=== PATIENT | male | born 1955 | race Caucasian/White ===

== ENCOUNTER 2017-10-13 12:19 | Emergency (ER) | payer BC ==
[2017-10-13 12:24] VITALS: BP 147/92; PULSE 100; TEMP 98.8; BMI 29.2
--- NOTE | 2017-10-13 13:15 | PDOC ---
History of Present Illness - General Chief Complaint: Injury Stated Complaint: FALL Time Seen by Provider: 10/13/17 12:53 History Source: Patient, Family Exam Limitations: Language Barrier - History of Present Illness Initial Comments: 10/13/17 13:08 Patient is a 61M with history of NIDDM, HTN, migraines that result in dizzy spells here today with trauma after a fall. He has an abrasion and ecchymosis over right eye and swelling with tenderness in left thumb/hand. Patient states that he had a mechanical fall while walking down some stairs due to the stairs being uneven. The fall was not witnessed. Patient denies LOC, vomiting. He states that he was able to walk home after the incident. Denies any prodromal symptoms such as chest pain, shortness of breath and dizziness. Past History - Past Medical History Allergies/Adverse Reactions: Allergies Allergy/AdvReac Type Severity Reaction Status Date / Time No Known Allergies Allergy Verified 09/19/16 12:59 Home Medications: Ambulatory Orders Aspirin 81 mg PO DAILY 10/13/17 Atorvastatin Ca [Lipitor] 40 mg PO HS 10/13/17 Cephalexin Monohydrate [Keflex -] 500 mg PO BID #14 capsule 10/13/17 Cholecalciferol (Vitamin D3) [Vitamin D3] 1,000 unit PO DAILY 10/13/17 Linagliptin [Tradjenta] 5 mg PO DAILY 10/13/17 Metoprolol Tartrate 25 mg PO DAILY 10/13/17 Oxycodone HCl/Acetaminophen [Percocet 5-325 mg Tablet] 1 tab PO Q6H PRN #20 tablet MDD 4 10/13/17 Anemia: No Asthma: No Cancer: No Cardiac Disorders: No CVA: No COPD: No CHF: No Dementia: No Diabetes: Yes GI Disorders: No Disorders: No HTN: Yes Hypercholesterolemia: No Liver Disease: No Seizures: No Thyroid Disease: No - Suicide/Smoking/Psychosocial Hx Smoking History: Former smoker Have you smoked in the past 12 months: No Number of Cigarettes Smoked Daily: 20 If you are a former smoker, when did you quit?: 2 MO Information on smoking cessation initiated: No 'Breaking Loose' booklet given: 09/19/16 Hx Alcohol Use: Yes (SOCIAL) Drug/Substance Use Hx: No Review of Systems - Review of Systems Comments:: 10/13/17 13:17 GENERAL/CONSTITUTIONAL: No fever or chills. No weakness. HEAD, EYES, EARS, NOSE AND THROAT: No change in vision. No sore throat. CARDIOVASCULAR: No chest pain or shortness of breath RESPIRATORY: No cough, wheezing, or hemoptysis. GASTROINTESTINAL: No nausea, vomiting, diarrhea or constipation. GENITOURINARY: No dysuria, frequency, or change in urination. MUSCULOSKELETAL: Positive for headache and pain to left hand/thumb. SKIN: No rash NEUROLOGIC: Positive for headache. Denies vertigo, loss of consciousness, or change in strength/sensation. HEMATOLOGIC/LYMPHATIC: No anemia, easy bleeding, or history of blood clots. ALLERGIC/IMMUNOLOGIC: No hives or skin allergy. *Physical Exam - Vital Signs Last Vital Signs Temp Pulse Resp BP Pulse Ox 98.8 F 100 H 20 147/92 97 10/13/17 12:20 10/13/17 12:20 10/13/17 12:20 10/13/17 12:20 10/13/17 12:20 - Physical Exam Comments: 10/13/17 13:18 GENERAL: Awake, alert, and fully oriented, in no acute distress HEAD: 3x3cm ecchymosis over right eye, normocephalic EYES: PERRLA without pain, EOMI without pain, sclera anicteric, conjunctiva clear ENT: Auricles normal inspection, hearing grossly normal, nares patent, oropharynx clear without exudates. Moist mucosa NECK: Normal ROM, supple, no lymphadenopathy, JVD, or masses, no tenderness midline LUNGS: No distress, speaks full sentences, clear to auscultation bilaterally HEART: Regular rate and rhythm, normal S1 and S2, no murmurs, rubs or gallops, peripheral pulses normal and equal bilaterally. L Hand: Swelling over left thumb with linear laceration, 4cm. Neurovascularly intact distal to injury. Positive for snuffbox tenderness. NEUROLOGICAL: Cranial nerves II through XII grossly intact. Normal speech, normal gait, no focal sensorimotor deficits Procedures - Splinting Splint Location: Left: Forearm Pre-Proc Neuro Vasc Exam: normal Hand-Made Type: orthoglass Splint Type: Yes: Thumb Spica, Sugar Tong Post-Proc Neuro Vasc Exam: normal Mic Bandage: 4" Sling: Yes Complications: No - Laceration/Wound Repair Left Posterior Hand Wound Length: 2.6 to 5.0 cm Wound Explored: clean, no foreign body present Wound's Depth, Shape: superficial Irrigated w/ Saline: Yes Anesthesia: 1% Lidocaine Amount of Anesthetic (ccs): 3 Wound Repaired With: Sutures Suture Size/Type: 4:0 Number of Sutures: 4 ED Treatment Course - RADIOLOGY Radiology Studies Ordered: Category Date Time Status HEAD CT WITHOUT CONTRAST [CT] Stat CT Scan 10/13/17 13:06 Ordered WRIST W/HAND-LEFT* [RAD] Stat Radiology 10/13/17 13:06 Ordered Medical Decision Making - Medical Decision Making 10/13/17 13:20 61M with history of DM, HTN, and migraines here today with trauma after a fall. Vital signs normal and stable. HR 100 at triage, in the 80s on my exam. Will do head ct for head trauma. Will do tetanus and x-ray for left hand. Will splint for possible scaphoid fracture even if x-rays negative. Will clean out wound, possibly repair. 10/13/17 14:[address] negative. XR shows possible distal radius impaction fracture. Will evaluate further with CT scan of extremity. 10/13/17 15:[address] pending. 10/13/17 16:52 CT shows fractures of trapezius, hamate, capitate. Placed in sugar tong with thumb spica splint. *DC/Admit/Observation/Transfer Diagnosis at time of Disposition: Hand fracture, left - Discharge Dispostion Disposition: HOME Condition at time of disposition: Good Admit: No - Prescriptions Prescriptions: Cephalexin Monohydrate [Keflex -] 500 mg PO BID #14 capsule - Referrals Referrals: Wiliam Vivar MD [Primary Care Provider] - Dimitri De La Rosa MD [Staff Physician] - - Patient Instructions Printed Discharge Instructions: How to Use a Sling, DI for Laceration Repair Additional Instructions: Please return if you have any new, worsening or concerning symptoms. Please call your orthopedics doctor tomorrow for follow up. Your stitches can come out in 7 days. Please return to the ED or have another physician take them out. - Post Discharge Activity
[2017-10-13] MEDS ORDERED: DIPHTH,PERTUSS(ACELL),TET 0.5 ML DISP.SYRIN IM ONE (13:16)
[2017-10-13] MEDS ORDERED: CEPHALEXIN MONOHYDRATE 500 MG CAPSULE (UD) PO ONE (13:16)
[2017-10-13] MEDS ORDERED: CEPHALEXIN MONOHYDRATE 250 MG CAPSULE (FP) ONE (13:19)
--- NOTE | 2017-10-13 14:37 | PDOC ---
Attending Attestation - Resident Resident Name: Mukesh Roque - ED Attending Attestation I have performed the following: I have examined & evaluated the patient, The case was reviewed & discussed with the resident, I agree w/resident's findings & plan, Exceptions are as noted - HPI HPI: 10/13/17 14:33 61-year-old male with history of diabetes presents with mechanical fall. The patient had tripped and fell and struck his head. No loss of consciousness. Does take baby aspirin. Stated he felt his left hand is pulling complaints of pain along the snuffbox region in addition to the thenar eminence. Denies numbness or weakness. Last tetanus is unknown. Patient came to the ED for evaluation. - Physicial Exam PE: 10/13/17 14:37 GENERAL: Awake, alert, and fully oriented, in no acute distress. HEAD: Small ecchymosis overlying R eyebrow, small racoon eye. no bonner signs. no c-spine tenderness. EYES: PERRLA, EOMI, sclera anicteric, conjunctiva clear ENT: Auricles normal inspection, hearing grossly normal, nares patent, NECK: Normal ROM, supple LUNGS: Breath sounds equal, clear to auscultation bilaterally. No wheezes, and no crackles HEART: Regular rate and rhythm, normal S1 and S2, no murmurs, rubs or gallops ABDOMEN: Soft, nontender, normoactive bowel sounds. No guarding, no rebound. No masses EXTREMITIES: Normal range of motion, no edema. LUE: 2+ radial pulse. Sensation intact throughout median/radian/ulnar nerve. + tenderness to thenar eminence. ?snuffbox tenderness. < 2 sec cap refill. Swelling and tenderness along distal radial region. NEUROLOGICAL: Cranial nerves II through XII grossly intact. Normal speech SKIN: Warm, Dry, normal turgor, no rashes or lesions noted. - Medical Decision Making 10/13/17 14:39 Vital Signs Temp Pulse Resp BP Pulse Ox 98.8 F 100 H 20 147/92 97 10/13/17 12:20 10/13/17 12:20 10/13/17 12:20 10/13/17 12:20 10/13/17 12:20 Patient with mechanical fall and head injury. Given patient is on aspirin, we will obtain a head CT. Head CT was reviewed and demonstrates no acute hemorrhage or bleeding. Patient is noted to have a small laceration that is superficial to the left thenar eminence. We'll need to clean and likely suture the wound up. We'll update tetanus and give prophylactic antibiotics like Keflex given history of diabetes. Patient's x-ray demonstrate sequestral finding of the distal radius fracture. We'll further investigate with a CT scan. However, given the patient's clinical findings, the patient will likely benefit from a splint and follow up with orthopedics. 10/13/17 16:51 No acute intracranial hemorrhage or skewed skull fracture. CAT scan of the wrist demonstrates essentially nonspecific fracture to the radial aspect of the hamate and ulnar aspect the capitate. Mildly displaced, oblique fracture to the base of the trapezium which may be an avulsion fracture. Patient is placed in a sugar tong. However, given the potential concerns for scaphoid fracture as well, patient was placed in a modified thumb spica. The patient will go home with his daughter. I advised patient that he will need to follow up with orthopedist.
[2017-10-13] MEDS ORDERED: BACITRACIN 0.9 GM PACKET TP ONE (16:50)
[2017-10-13] MEDS ORDERED: BACITRACIN 0.9 GM PACKET ONE (16:53)
== END 2017-10-13 17:00 | disposition home or self-care (01) ==
LOC: JER 12:19
PROC: 2W3DX1Z Immobilization of Left Lower Arm using Splint (ICD-10-PCS; principal; 2017-10-13)
PROC: 0HQGXZZ Repair Left Hand Skin, External Approach (ICD-10-PCS; 2017-10-13)
PROC: 3E0234Z Introduction of Serum, Toxoid and Vaccine into Muscle, Percutaneous Approach (ICD-10-PCS; 2017-10-13)
DX: S52.592A Other fractures of lower end of left radius, initial encounter for closed fracture (principal); S61.412A Laceration without foreign body of left hand, initial encounter; S00.11XA Contusion of right eyelid and periocular area, initial encounter; W18.39XA Other fall on same level, initial encounter; Y93.89 Activity, other specified; Y92.414 Local residential or business street as the place of occurrence of the external cause; Y99.8 Other external cause status; E11.9 Type 2 diabetes mellitus without complications; Z79.84 Long term (current) use of oral hypoglycemic drugs; I10 Essential (primary) hypertension
CPT/HCPCS: 70450-TC; 73110-TC-LT; 73130-TC-LT; 73200-TC-RT; 90715; 99283-25

== ENCOUNTER 2018-01-01 05:01 | Day surgery (SDC) | payer BC ==
[2017-12-30 13:49] VITALS: BMI 31.6
[2018-01-01 06:57] VITALS: TEMP 98.8
[2018-01-01] MEDS ORDERED: BUPIVACAINE HCL/PF 0.5% (5MG/ML) 10 ML VIAL ONE (07:11)
[2018-01-01] MEDS ORDERED: LIDOCAINE HCL 1%, 10 MG/ML (20ML VIAL) ONE (07:11)
[2018-01-01] MEDS ORDERED: PROPOFOL 20 ML ONE ×4 (07:27)
[2018-01-01] MEDS ORDERED: ceFAZolin SODIUM 1 GM VIAL ONE (07:27)
[2018-01-01] MEDS ORDERED: SUCCINYLCHOLINE CHLORIDE 200 MG/10 ML VIAL ONE (07:27)
[2018-01-01] MEDS ORDERED: LIDOCAINE HCL/PF 2% SDV 5ML VIAL ONE (07:27)
[2018-01-01] MEDS ORDERED: MIDAZOLAM HCL 2 MG/2 ML SINGLE DOSE VIAL ONE ×2 (07:28)
--- NOTE | 2018-01-01 08:00 | HP ---
[facility] - Chief Complaint Chief Complaint: left thumb pain History of Present Illness: left trigger thumb History Source: Patient Limitations to Obtaining History: No Limitations - Past Medical History Allergies/Adverse Reactions: Allergies Allergy/AdvReac Type Severity Reaction Status Date / Time No Known Allergies Allergy Verified 01/01/18 07:05 - Current Medications Current Medications: Home Medications Medication Instructions Recorded Aspirin 81 mg PO DAILY 10/13/17 Atorvastatin Ca [Lipitor] 40 mg PO HS 10/13/17 Cholecalciferol (Vitamin D3) 1,000 unit PO DAILY 10/13/17 [Vitamin D3] Linagliptin [Tradjenta] 5 mg PO DAILY 10/13/17 Metoprolol Tartrate 25 mg PO DAILY 10/13/17 Satellite Physical Exam - Physical Examination Vital Signs: Vital Signs Period Temp Pulse Resp BP Sys/Escobar Pulse Ox Last 24 Hr 98.8 F 97 20 129/91 96-96 General Appearance: Well Nourished ENT: Clear Lung: Clear to auscultation Heart: Regular rate & rhythm Breasts: Soft Abdomen: Soft Extremities: No edema Satellite Impression/Plan - Impression/Plan Impression: left trigger thumb Operative Procedure: left trigger thumb release Date to be Performed: 01/01/18
[2018-01-01] MEDS ORDERED: METOPROLOL TARTRATE 5 MG/5 ML VIAL ONE (08:05)
[2018-01-01] MEDS ORDERED: ceFAZolin SODIUM 1 GM VIAL IVPB ONE (08:12)
[2018-01-01] MEDS ORDERED: LIDOCAINE HCL 1%, 10 MG/ML (20ML VIAL) INF ONE ×2 (08:16)
[2018-01-01] MEDS ORDERED: BUPIVACAINE HCL/PF 0.5% (5MG/ML) 10 ML VIAL IJ ONE ×2 (08:16)
--- NOTE | 2018-01-01 08:35 | OP ---
Operative Note - Note: Operative Date: 01/01/18 Pre-Operative Diagnosis: left trigger thumb Operation: left trigger thumb release Post-Operative Diagnosis: Same as Pre-op Surgeon: Danish Oconnor Anesthesiologist/CATERING DRIVER: Shayne Cordero Anesthesia: Local, MAC Estimated Blood Loss (mls): 0 Drains, Volume Out (mls): 0 Blood Volume Replaced (mls): 0 Fluid Volume Replaced (mls): 500 Operative Report Dictated: Yes
--- NOTE | 2018-01-01 08:57 | SPEC ---
DATE OF OPERATION: 01/01/2018 PREOPERATIVE DIAGNOSIS: Left thumb trigger finger. POSTOPERATIVE DIAGNOSIS: Left thumb trigger finger. SURGEON: Simona Lew M.D. BACTERIOLOGIST DAIRY: None. ANESTHESIOLOGIST: Shayne Cordero M.D. ANESTHESIA: MAC anesthesia with local injection 12 mL of 0.5% Marcaine and 1% lidocaine mix. OPERATION: Left trigger thumb release and tendon sheath excision. SPECIMEN: Tendon sheath. BLOOD LOSS: None. DRAINS: None. COMPLICATIONS: None. BLOOD GIVEN: None. FLUID REPLACEMENT: 500 mL Plasmalyte. INDICATIONS: The patient is a 62-year-old male with the preoperative diagnosis of left trigger thumb. After understanding the potential risks, complications, benefits, alternatives, benefits of the surgery versus non-surgical treatment, the patient elected to undergo this procedure. PROCEDURE: The patient was brought to the operating room, IV was placed, IV sedation was given. Two grams of intravenous Ancef given. A tourniquet was applied to the left upper arm and the left upper extremity was prepped and draped in sterile fashion. The entire case was done under 3.8 loupe magnification. A marking pen was utilized to dory out a longitudinal incision in an already existing skin crease at the base of the left thumb. Then 10 mL of 0.5% Marcaine mixed with 1% Lidocaine was injected in and around the incision. The left upper extremity was elevated, exsanguinated with an Esmarch bandage and the tourniquet inflated to 250 mmHg. A No. 15 scalpel blade was utilized to cut down through the skin. Subcutaneous hemostasis was achieved with the bipolar cautery. Additional dissection was done with Littler scissors until I was able to directly visualize the A1 elif sheath in its entirety. Self-retaining retractors were placed into the wound. A free air elevator was used to free up the tissue on the radial side, the ulnar side distally and proximally under better visualization of A1 elif sheath. Next, using a fresh No. 15 scalpel blade, I excised the central one-third of the A1 elif sheath and passed it off the field as specimen, tendon sheath, left thumb. I then completed the release, both distally and proximally, and brought the FDS and FDP tendons out through the wound with a Ragnell retractor. There were no abnormal points of compression. I was able to move the left thumb without the tendons bunching up at all. The area was then copiously irrigated and washed out. I then checked one more time to make sure there were no abnormal points of compression. None were seen and therefore closure was begun. One stitch using 4-0 Vicryl was used in the deep dermal layer. Skin was reapproximated with 4-0 Nylon sutures in a horizontal mattress fashion. The area was then washed and dried, covered with Xeroform gauze, sterile 4x4s, fluffs between the fingers, Webril and Coban. The tourniquet was taken down after a total tourniquet time of 18 minutes. There were no complications during the case. The patient tolerated the procedure well and was brought to the Ambulatory recovery Room in stable condition. SIMONA LEW M.D. [id number]
[2018-01-01 10:34] VITALS: BP 114/71; PULSE 95
== END 2018-01-01 10:25 | disposition home or self-care (01) ==
LOC: JASU-SURG 05:01
PROVIDERS: ATTEND Orthopaedic Surgery
PROC: 0LN80ZZ Release Left Hand Tendon, Open Approach (ICD-10-PCS; principal; 2018-01-01 08:00)
DX: M65.312 Trigger thumb, left thumb (principal)
CPT/HCPCS: 82962

== ENCOUNTER 2018-12-30 07:33 | Observation (INO) | payer BC, OTHER ==
[2018-12-30] MEDS ORDERED: SODIUM CHLORIDE 1,000 ML IV STA (07:41)
[2018-12-30] MEDS ORDERED: ONDANSETRON 4 MG/2 ML VIAL IVPUSH ONE (07:41)
[2018-12-30] MEDS ORDERED: METOCLOPRAMIDE HCL INJECTION 10 MG/2 ML VIAL IVPUSH ONE (07:47)
[2018-12-30] MEDS ORDERED: METOCLOPRAMIDE HCL INJECTION 10 MG/2 ML VIAL ONE (07:51)
[2018-12-30] MEDS ORDERED: LORazepam 2 MG/ML SDV VIAL ONE (07:53)
--- NOTE | 2018-12-30 07:53 | PDOC ---
History of Present Illness - General Chief Complaint: Nausea/Vomiting Stated Complaint: VOMITING,DIZZINESS Time Seen by Provider: 12/30/18 07:38 History Source: Patient, Family - History of Present Illness Initial Comments: 12/30/18 07:53 Patient is a 63M with history of NIDDM, HTN, migraines that result in dizzy spells here today complaining of dizziness and vomiting that started acutely at 6am. Patient states that he woke up feeling dizzy then walked over to the bathroom to make himself vomit. Denies chest pain, shortness of breath. Denies abdominal pain. No new foods, no sick contacts, no one else with similar symptoms. No headache. Past History - Past Medical History Allergies/Adverse Reactions: Allergies Allergy/AdvReac Type Severity Reaction Status Date / Time No Known Allergies Allergy Verified 01/01/18 07:05 Home Medications: Ambulatory Orders Aspirin 81 mg PO DAILY 10/13/17 Atorvastatin Ca [Lipitor] 40 mg PO HS 10/13/17 Cholecalciferol (Vitamin D3) [Vitamin D3] 1,000 unit PO DAILY 10/13/17 Linagliptin [Tradjenta] 5 mg PO DAILY 10/13/17 Metoprolol Tartrate 25 mg PO DAILY 10/13/17 Fenofibric Acid 105 mg PO DAILY 12/30/18 Anemia: No Asthma: No Cancer: No Cardiac Disorders: No CVA: No COPD: No CHF: No Dementia: No Diabetes: Yes GI Disorders: No Disorders: No HTN: Yes Hypercholesterolemia: No Liver Disease: No Seizures: No Thyroid Disease: No - Surgical History Orthopedic Surgery: Yes - Immunization History Immunization Up to Date: Yes - Suicide/Smoking/Psychosocial Hx Smoking History: Never smoked Have you smoked in the past 12 months: No Number of Cigarettes Smoked Daily: 20 If you are a former smoker, when did you quit?: 2 MO 'Breaking Loose' booklet given: 09/19/16 Hx Alcohol Use: No Drug/Substance Use Hx: No Substance Use Type: None Review of Systems - Review of Systems Able to Perform ROS?: Yes Comments:: 12/30/18 08:05 GENERAL/CONSTITUTIONAL: No fever or chills. No weakness. HEAD, EYES, EARS, NOSE AND THROAT: No change in vision. No sore throat. CARDIOVASCULAR: No chest pain or shortness of breath RESPIRATORY: No cough, wheezing, or hemoptysis. GASTROINTESTINAL: +nausea, +vomiting, no diarrhea or constipation. GENITOURINARY: No dysuria, frequency, or change in urination. MUSCULOSKELETAL: No joint or muscle swelling or pain. No neck or back pain. SKIN: No rash NEUROLOGIC: No headache, +vertigo, no loss of consciousness, or change in strength/sensation. ALLERGIC/IMMUNOLOGIC: No hives or skin allergy. *Physical Exam - Vital Signs Last Vital Signs Temp Pulse Resp BP Pulse Ox 97.4 F L 95 H 18 160/98 95 12/30/18 07:46 12/30/18 07:46 12/30/18 07:46 12/30/18 07:46 12/30/18 07:46 - Physical Exam Comments: 12/30/18 08:06 GENERAL: Awake, alert, and fully oriented, diaphoretic HEAD: No signs of trauma, normocephalic, atraumatic EYES: PERRLA, EOMI, sclera anicteric, conjunctiva clear ENT: Auricles normal inspection, hearing grossly normal, nares patent, oropharynx clear without exudates. Moist mucosa NECK: Normal ROM, supple, no lymphadenopathy, JVD, or masses LUNGS: No distress, speaks full sentences, clear to auscultation bilaterally HEART: Regular rate and rhythm, normal S1 and S2, no murmurs, rubs or gallops, peripheral pulses normal and equal bilaterally. ABDOMEN: Soft, nontender, normoactive bowel sounds. No guarding, no rebound. No masses EXTREMITIES: Normal inspection, Normal range of motion, no edema. No clubbing or cyanosis. NEUROLOGICAL: Cranial nerves II through XII grossly intact. Normal speech, no focal sensorimotor deficits SKIN: Warm, Dry, normal turgor, no rashes or lesions noted. ED Treatment Course - LABORATORY CBC & Chemistry Diagram: 12/30/18 08:00 12/30/18 08:00 - Medications Given in the ED: ED Medications Discontinued Medications Generic Name Dose Route Start Last Admin Trade Name Freq PRN Reason Stop Dose Admin Ondansetron HCl 4 mg 12/30/18 07:41 12/30/18 07:50 Zofran Injection IVPUSH 12/30/18 07:42 Not Given ONCE ONE Medical Decision Making - Medical Decision Making 12/30/18 08:07 Patient is 63M with history of IDDM, HTN, migraines here today with headache, vomiting, dizziness. DDx includes, but is not limited to: vertigo, gastritis, pancreatitis, ACS, subarachnoid. EKG shows NSR with normal rate. No st depressions/elevations. QTc prolonged to 503. Normal axis. Will treat with benadryl and ativan given qtc. 12/30/18 11:56 CBC normal CMP reassuring. Trop negx2 CT head normal. Patient continues to be dizzy and unable to walk, will obs for MRI to evaluate for possible stroke. *DC/Admit/Observation/Transfer Diagnosis at time of Disposition: Dizziness - Discharge Dispostion Condition at time of disposition: Stable Decision to Admit order: Yes - Referrals Referrals: Wiliam Vivar MD [Primary Care Provider] - - Patient Instructions - Post Discharge Activity
--- NOTE | 2018-12-30 08:19 | PDOC ---
Attending Attestation - Resident Resident Name: Mukesh Roque - ED Attending Attestation I have performed the following: I have examined & evaluated the patient, The case was reviewed & discussed with the resident, I agree w/resident's findings & plan - HPI HPI: 12/30/18 08:11 63M with history of NIDDM, HTN, HLD, migraines, sagittal sinus thrombosis, presenting with acute onset of frontal headache, dizziness and vomiting when he woke up at 6AM this morning. Denies triggers. No prior sx of similar sx. Active lifestyle, no prodromal illnesses or food triggers. - Physicial Exam PE: 12/30/18 10:22 +vomiting, malaised appearing, PERRL, EOMI, dry membranes, nl conjunctiva, anicteric; neck supple. lungs clear, RRR, abdomen soft nontender. ANDINO x4, no focal neuro deficits. crosses legs. No peripheral edema. normal color for ethnicity, WWP. - Medical Decision Making 12/30/18 08:12 See HPI for details Vital signs reviewed, wnl. DDx. vertigo, central vs peripheral, CVA, SAH/ruptured aneurysm, vertebral/ cerebral dissection, aneurysm, ACS, arrhythmia, electrolyte/metabolic derangements. Prior notes reviewed, including admissions, discharges and consultations. laboratory results and imaging reviewed, basic labs and lytes wnl, notable for_ . CT head neg for SAH/bleed, CVA or acute PROCESS CONSULTANT pathology/high sensitivity to r/o SAH in initial 6 hours, so much less likely Cardiac panel_neg trop x2 doubt cardiac EKG normal sinus rhythm at 88 bpm, Prolonged QTc at >500ms, narrow QRS, ST and T wave segments and morphology normal. Nonspecific T wave abnormalities ED course - acutely vomiting on initial assessment, given benadryl/ativan for his sx. + headache and dizziness, considering neuro vs cardiac etiology. - has prolonged QTc on EKG, no prior diagnosis previously, so no anti- dopaminergics/serotonin agents that can precipitate Torsades - on reassessment, still n/v, unable to missael PO. limitations in antiemetics due to QTC, only as needed can provide low dose benzo vs antihistamine therapy dispo: admit for dizziness/vertigo workup, MRI/MRA imaging, neuro eval admit to Dr Reese service. 12/30/18 10:22 12/30/18 12:28 Heart Score/ECG Review #1 ECG reviewed & interpreted by me at: 07:40 General ECG Interpretation: Sinus Rhythm, Normal Rate Compared to previous ECG there are: Previous ECG unavail 12/30/18 08:20 EKG normal sinus rhythm at 88 bpm, Prolonged QTc at >500ms, narrow QRS, ST and T wave segments and morphology normal. Nonspecific T wave abnormalities
[2018-12-30 08:31] LABS: BASO % 1.1 % (0-2.0); EOS % 2.2 % (0-4.5); HEMATOCRIT 40.4 % (35.4-49); HEMOGLOBIN 13.3 GM/dL (11.7-16.9); LYMPH % 35.4 % (8-40); MCH 30.2 pg (25.7-33.7); MEAN CELL VOLUME 91.4 fl (80-96); MEAN PLT VOLUME 10.7 fl (7.5-11.1); MONO % 5.4 % (3.8-10.2); NEUT % 55.9 % (42.8-82.8); PLATELET COUNT 178 K/MM3 (134-434); RBC 4.42 M/mm3 (4.00-5.60)
[2018-12-30 08:45] LABS: ALK PHOS 68 U/L (45-117); ANION GAP 8 MMOL/L (8-16); BILIRUBIN,TOTAL 0.5 mg/dL (0.2-1); BLOOD UREA NITROGEN 15 mg/dL (7-18); CALCIUM 8.2 mg/dL (8.5-10.1); CHLORIDE 107 mmol/L (98-107); CO2 22 mmol/L (21-32); CREATININE 0.7 mg/dL (0.55-1.3); GLUCOSE,RANDOM 218 mg/dL (74-106); LIPASE 150 U/L (73-393); POTASSIUM 3.9 mmol/L (3.5-5.1); SGOT/AST 27 U/L (15-37); SGPT/ALT 28 U/L (13-61); SODIUM 137 mmol/L (136-145); TOT PROT 7.4 g/dl (6.4-8.2)
[2018-12-30] MEDS ORDERED: METOPROLOL TARTRATE 25 MG TABLET (FP) PO SCH (15:30)
--- NOTE | 2018-12-30 15:35 | HP ---
CHIEF COMPLAINT:dizzyness PCP:Wiliam Vivar HISTORY OF PRESENT ILLNESS: 63yo M wtih PMH DM, dyslipidemia, HTN presented to the ER due to dizzyness. was sudden onset this AM after waking up. assoc with nausea and vomiting. states he was unable to ambulate due to the dizzyness. felt fine yesterday with minor CLEMENTS prior to bedtime but no other symptoms. eating and drinking well. only took his diabetic medication yesterday but no medications today due to his symptoms. has not vomited since arrival to the ER. states never had a similar episode in the past that persisted or this severe. use to suffer from migraines in 2017 however those have resolved. denies Cp, SOB, fever, chills, cough, N/V/C/D, blurred vision, tinnitus, polyuria, polydipsia, dysuria no recent infections or abx use ER course was notable for: (1)head CT negative (2) (3) Recent Travel:denies PAST MEDICAL HISTORY:as above PAST SURGICAL HISTORY:knee replacement, L wrist surgery after mechanical fall Social History: Smoking:quit 2 years ago Alcohol:on special occasions <1x/month Drugs: denies Family History:DM, parkinsons Allergies No Known Allergies Allergy (Verified 01/01/18 07:05) HOME MEDICATIONS: Home Medications Medication Instructions Recorded Aspirin 81 mg PO DAILY 10/13/17 Atorvastatin Ca [Lipitor] 40 mg PO HS 10/13/17 Cholecalciferol (Vitamin D3) 1,000 unit PO DAILY 10/13/17 [Vitamin D3] Linagliptin [Tradjenta] 5 mg PO DAILY 10/13/17 Metoprolol Tartrate 25 mg PO DAILY 10/13/17 Fenofibric Acid 105 mg PO DAILY 12/30/18 REVIEW OF SYSTEMS CONSTITUTIONAL: Absent: fever, chills, diaphoresis, generalized weakness, malaise, loss of appetite, weight change HEENT: Absent: rhinorrhea, nasal congestion, throat pain, throat swelling, difficulty swallowing, mouth swelling, ear pain, eye pain, visual changes CARDIOVASCULAR: Absent: chest pain, syncope, palpitations, irregular heart rate, lightheadedness , peripheral edema RESPIRATORY: Absent: cough, shortness of breath, dyspnea with exertion, orthopnea, wheezing, stridor, hemoptysis GASTROINTESTINAL: nausea, vomiting Absent: abdominal pain, abdominal distension,, diarrhea, constipation, melena, hematochezia GENITOURINARY: Absent: dysuria, frequency, urgency, hesitancy, hematuria, flank pain, genital pain MUSCULOSKELETAL: Absent: myalgia, arthralgia, joint swelling, back pain, neck pain SKIN: Absent: rash, itching, pallor HEMATOLOGIC/IMMUNOLOGIC: Absent: easy bleeding, easy bruising, lymphadenopathy, frequent infections ENDOCRINE: Absent: unexplained weight gain, unexplained weight loss, heat intolerance, cold intolerance NEUROLOGIC: dizziness, Absent: headache, focal weakness or paresthesias, unsteady gait, seizure, mental status changes, bladder or bowel incontinence PSYCHIATRIC: Absent: anxiety, depression, suicidal or homicidal ideation, hallucinations. PHYSICAL EXAMINATION Vital Signs - 24 hr 12/30/18 12/30/18 07:46 13:20 Temperature 97.4 F L 98.1 F Pulse Rate 95 H Pulse Rate [ 98 H Left] Respiratory 18 18 Rate Blood Pressure 160/98 Blood Pressure 108/64 [Left Arm] O2 Sat by Pulse 95 98 Oximetry (%) GENERAL: Awake, alert, and fully oriented, in no acute distress. HEAD: Normal with no signs of trauma. EYES: Pupils equal, round and reactive to light, extraocular movements intact, sclera anicteric, conjunctiva clear. No lid lag. EARS, NOSE, THROAT: Ears normal, nares patent, oropharynx clear without exudates. Moist mucous membranes. NECK: Normal range of motion, supple without lymphadenopathy, JVD, or masses. LUNGS: Breath sounds equal, clear to auscultation bilaterally. No wheezes, and no crackles. No accessory muscle use. HEART: Regular rate and rhythm, normal S1 and S2 without murmur, rub or gallop. ABDOMEN: Soft, nontender, not distended, normoactive bowel sounds, no guarding, no rebound, no masses. No hepatomegaly or splenomegaly. MUSCULOSKELETAL: Normal range of motion at all joints. No bony deformities or tenderness. No CVA tenderness. UPPER EXTREMITIES: 2+ pulses, warm, well-perfused. No cyanosis. No clubbing. No peripheral edema. LOWER EXTREMITIES: 2+ pulses, warm, well-perfused. No calf tenderness. No peripheral edema. NEUROLOGICAL: Cranial nerves II-XII intact. Normal speech. strength and sensation equal in all 4 extremities. refused katy hallpike manuever PSYCHIATRIC: Cooperative. Good eye contact. Appropriate mood and affect. SKIN: Warm, dry, normal turgor, no rashes or lesions noted, normal capillary refill. Laboratory Results - last 24 hr 12/30/18 12/30/18 12/30/18 08:00 08:00 11:01 WBC 11.0 H RBC 4.42 Hgb 13.3 Hct 40.4 MCV 91.4 MCH 30.2 MCHC 33.0 RDW 14.0 Plt Count 178 MPV 10.7 D Absolute Neuts (auto) 6.2 Neutrophils % 55.9 Lymphocytes % 35.4 Monocytes % 5.4 Eosinophils % 2.2 Basophils % 1.1 Nucleated RBC % 0 Sodium 137 Potassium 3.9 Chloride 107 Carbon Dioxide 22 Anion Gap 8 BUN 15 Creatinine 0.7 Creat Clearance w eGFR 113.54 Random Glucose 218 H Calcium 8.2 L Total Bilirubin 0.5 AST 27 ALT 28 Alkaline Phosphatase 68 Creatine Kinase 260 244 Creatine Kinase Index 0.7 2.0 CK-MB (CK-2) 2.0 5.0 H Troponin I < 0.02 < 0.02 Total Protein 7.4 Albumin 4.0 Lipase 150 ASSESSMENT/PLAN: 63yo M wtih PMH DM, hypertriglyceridemia, HTN presented to the ER due to dizzyness that started suddenly this AM 1. Dizzyness-possible BPPV although can not r/o vertebral CVA. refused katy hallpike manuever. dizzyness has persisted despite ativan. will give meclizine , if no improvement will consider dose of valium 2mg tonight. MRA to evaluate vertebrals, check UA. neuro consulted 2. Leukocytosis- liekly reactive. no symptoms suggestive of infection. would hold abx at this time 3. prolonged Qtc- 503. avoid QT prolonging medications 4. DM- did not take AM meds. check BGM Q6H, iss. 5. HTN- controlled. cont metoprolol 6. hypertriglyceridemia- tricor 7. DVT ppx- EAM Visit type - Emergency Visit Emergency Visit: Yes ED Registration Date: 12/30/18 Care time: The patient presented to the Emergency Department on the above date and was hospitalized for further evaluation of their emergent condition. - New Patient This patient is new to me today: Yes Date on this admission: 12/30/18 - Critical Care Critical Care patient: No
[2018-12-30 15:53] VITALS: BMI 27.9
[2018-12-30] MEDS: MECLIZINE HCL 12.5 MG TABLET PO PRN (16:39)
[2018-12-30] MEDS: INSULIN SLIDING SCALE (NOVOLOG) 1 VIAL SQ SCH ×2 (16:39→21:01)
[2018-12-30] MEDS: ASPIRIN 81 MG CHEWABLE TABLETS PO SCH (16:39)
--- NOTE | 2018-12-30 16:44 | CONSULT ---
Consult - text type - Consultation Consultation Note: NEUROLOGY CONSULT APPRECIATED: Events reviewed and discussed with Dr. Roque and RANDI Brumfield. Agustina jose in translation of events. This 63 yo M with CAD, HTN, DM, HLD is well- known to me from office management of migraine headaches. Maintained on ASA, atorvastatin, linagliptin, metoprolol (12.5 mg qd), and fenofibric acid. Admitted here after acute holocranial headache with associated P/P/N/V and vertiginous symptoms beginning at [address] (reviewed): chronic periventricular and subcortical microvascular changes c/w migraine WBC = 11.0 KATELYNN: Cor reg. No bruit. Neck supple. BP's in 140/90 range. NEURO: Awake, alert, cooperative. EOM intact without nystagmus. Full boykin appreciated. No facial. Motor: No drift. Strength nl. Absent AJ's. Plantars silent. Coordination: No FTN dystaxia Sensation: Reduced sharp to toes Gait: Sitting up reproduces vertiginous symptoms Impression: 1. Exacerbation of Migraine Headaches (likely vertebrobasilar distribution with vertigo) 2. R/O [employer] LE[employer]ER/Cerebellar Stroke 3. Peripheral Neuropathy (c/w diabetes) Suggest: Await UA, C & S Orthostatic BP's Change metoprolol to Propanolol ER 60 mg po daily for migraine prophylaxis Agree with MRA Agree with cardio and telemetry Thank you very much, Dimitri Viveros MD
[2018-12-30] MEDS ORDERED: ATORVASTATIN CA 40 MG TABLET (FP) PO SCH (22:00)
[2018-12-31] MEDS ORDERED: sitaGLIPtin PHOSPHATE 100 MG TABLET (FP) PO SCH (07:00)
[2018-12-31] MEDS: INSULIN SLIDING SCALE (NOVOLOG) 1 VIAL SQ SCH ×2 (07:16→11:36)
[2018-12-31] MEDS: MECLIZINE HCL 12.5 MG TABLET PO PRN (07:16)
[2018-12-31 07:27] LABS: BASO % 0.6 % (0-2.0); HEMATOCRIT 39.5 % (35.4-49); HEMOGLOBIN 13.2 GM/dL (11.7-16.9); LYMPH % 26.1 % (8-40); MCHC 33.3 g/dl (32.0-35.9); MEAN CELL VOLUME 89.9 fl (80-96); MEAN PLT VOLUME 10.1 fl (7.5-11.1); MONO % 5.5 % (3.8-10.2); NEUT % 66.8 % (42.8-82.8); PLATELET COUNT 155 K/MM3 (134-434); RBC 4.39 M/mm3 (4.00-5.60); RDW 13.7 % (11.9-15.9); WHITE BLOOD COUNT 7.9 K/mm3 (4.0-10.0)
[2018-12-31 08:12] LABS: ALBUMIN 3.8 g/dl (3.4-5.0); ALK PHOS 65 U/L (45-117); ANION GAP 6 MMOL/L (8-16); BILIRUBIN,TOTAL 0.6 mg/dL (0.2-1); BLOOD UREA NITROGEN 14 mg/dL (7-18); CHLORIDE 106 mmol/L (98-107); CO2 27 mmol/L (21-32); CREATININE 0.7 mg/dL (0.55-1.3); GLUCOSE,RANDOM 129 mg/dL (74-106); MAGNESIUM 2.2 mg/dL (1.8-2.4); POTASSIUM 3.6 mmol/L (3.5-5.1); SGOT/AST 21 U/L (15-37); SGPT/ALT 29 U/L (13-61); SODIUM 140 mmol/L (136-145)
--- NOTE | 2018-12-31 08:22 | CON.GI ---
Consult Consult Specialty:: GI Referred by:: Dr. Mukesh Roque Reason for Consultation:: Vomiting - History of Present Illness Chief Complaint: Vomiting History of Present Illness: Patient is a 63 y/o male with past medical history of HTN, HLD, DM who presented to ER with complaints of dizziness accompanied with vomiting. I was consulted to evaluate patient due to vomiting. Patient had 4 episodes of vomiting with epigastric pain. Patient states vomitus was creme colored with food contents. On examination patient denies further episodes of vomiting or epigastric pain. Denies nausea, vomiting, abdominal pain, abnormal weight loss , melena. - History Source History Provided By: Family Member Limitations to Obtaining History: Language Barrier - Past Medical History Cardio/Vascular: Yes: HTN, Hyperlipdemia Endocrine: Yes: Diabetes Mellitus - Past Surgical History Past Surgical History: Yes: Colonoscopy (2 years ago with polyp removal), Joint Replacement (knee) - Alcohol/Substance Use Hx Alcohol Use: No History of Substance Use: reports: None - Smoking History Smoking history: Former smoker Have you smoked in the past 12 months: No Aproximately how many cigarettes per day: 20 If you are a former smoker, when did you quit?: 2 YRS - Social History Usual Living Arrangement: With Spouse ADL: Independent Home Medications - Allergies Allergies/Adverse Reactions: Allergies Allergy/AdvReac Type Severity Reaction Status Date / Time No Known Allergies Allergy Verified 01/01/18 07:05 - Home Medications Home Medications: Ambulatory Orders Aspirin 81 mg PO DAILY 10/13/17 Atorvastatin Ca [Lipitor] 40 mg PO HS 10/13/17 Cholecalciferol (Vitamin D3) [Vitamin D3] 1,000 unit PO DAILY 10/13/17 Linagliptin [Tradjenta] 5 mg PO DAILY 10/13/17 Metoprolol Tartrate 25 mg PO DAILY 10/13/17 Fenofibric Acid 105 mg PO DAILY 12/30/18 Review of Systems - Review of Systems Constitutional: reports: No Symptoms Eyes: reports: No Symptoms HENT: reports: Other (Headache) Neck: reports: No Symptoms Cardiovascular: reports: No Symptoms Respiratory: reports: No Symptoms Gastrointestinal: reports: No Symptoms Genitourinary: reports: No Symptoms Breasts: reports: No Symptoms Reported Musculoskeletal: reports: No Symptoms Integumentary: reports: No Symptoms Neurological: reports: No Symptoms Endocrine: reports: No Symptoms Hematology/Lymphatic: reports: No Symptoms Psychiatric: reports: No Symptoms Physical Exam-GI Vital Signs: Vital Signs Temperature 98.1 F 12/31/18 05:50 Pulse Rate 84 12/31/18 05:50 Respiratory Rate 16 12/31/18 07:00 Blood Pressure 106/60 12/31/18 05:50 O2 Sat by Pulse Oximetry (%) 98 12/31/18 07:00 Constitutional: Yes: No Distress, Calm Eyes: Yes: Conjunctiva Clear HENT: Yes: Atraumatic Cardiovascular: Yes: Regular Rate and Rhythm Respiratory: Yes: Regular, CTA Bilaterally Gastrointestinal Inspection: Yes: WNL. No: Ascites, Distention, Hernia, Scars, Other ...Auscultate: Yes: Normoactive Bowel Sounds. No: Hyperactive Bowel Sounds, Hypoactive Bowel Sounds, No Bowel Sounds, Other ...Palpate: Yes: Soft. No: Firm/Rigid, Guarding, Hepatomegaly, Mass, Pulsatile Mass, Splenomegaly, Tenderness, Tenderness, Epigastium, Tenderness, Rebound, Other ...Percussion: Yes: Tympanitic. No: Dullness, Fluid Wave, Other Extremities: Yes: WNL Neurological: Yes: Alert, Oriented Psychiatric: Yes: Alert, Oriented Labs: CBC, BMP 12/31/18 06:30 12/31/18 06:30 Active Medications Generic Name Dose Route Start Last Admin Trade Name Freq PRN Reason Stop Dose Admin Aspirin 81 mg 12/30/18 15:30 12/30/18 16:39 Asa - PO 81 mg DAILY RAGINI Administration Atorvastatin Calcium 40 mg 12/30/18 22:00 12/30/18 21:02 Lipitor - PO 40 mg HS RAGINI Administration Fenofibric Acid 135 mg 12/31/18 10:00 Trilipix - PO DAILY RAGINI Insulin Aspart 1 vial 12/30/18 16:30 12/31/18 07:16 Novolog Vial Sliding Scale - SQ Not Given ACHS RAGINI Protocol Meclizine HCl 12.5 mg 12/30/18 15:19 12/31/18 07:16 Antivert - PO 12.5 mg Q6H PRN Administration dizzyness Propranolol HCl 60 mg 12/31/18 10:00 Inderal La - PO DAILY RAGINI Sitagliptin Phosphate 100 mg 12/31/18 07:00 12/31/18 07:16 Januvia - PO 100 mg DAILY@0700 RAGINI Administration Imaging - Results Cat Scan: Report Reviewed Problem List - Problems (1) Vomiting Assessment/Plan: R>Vertigo vs Chronic Headache >famotidine 40mg daily Code(s): R11.10 - VOMITING, UNSPECIFIED
--- NOTE | 2018-12-31 08:28 | PN ---
Progress Note, Physician - Current Medication List Current Medications: Active Medications Aspirin (Asa -) 81 mg PO DAILY [facility] Last Admin: 12/30/18 16:39 Dose: 81 mg Atorvastatin Calcium (Lipitor -) 40 mg PO HS [facility] Last Admin: 12/30/18 21:02 Dose: 40 mg Fenofibric Acid (Trilipix -) 135 mg PO DAILY [facility] Famotidine/Sodium Chloride (Pepcid 20 Mg Premixed Ivpb -) 20 mg in 50 mls @ 100 mls/hr IVPB BID [facility] Insulin Aspart (Novolog Vial Sliding Scale -) 1 vial SQ ACHS [facility]; Protocol Last Admin: 12/31/18 07:16 Dose: Not Given Meclizine HCl (Antivert -) 12.5 mg PO Q6H PRN PRN Reason: dizzyness Last Admin: 12/31/18 07:16 Dose: 12.5 mg Propranolol HCl (Inderal La -) 60 mg PO DAILY [facility] Sitagliptin Phosphate (Januvia -) 100 mg PO DAILY@0700 [facility] Last Admin: 12/31/18 07:16 Dose: 100 mg - Objective Vital Signs: Vital Signs Temperature 98.1 F 12/31/18 05:50 Pulse Rate 84 12/31/18 05:50 Respiratory Rate 16 12/31/18 07:00 Blood Pressure 106/60 12/31/18 05:50 O2 Sat by Pulse Oximetry (%) 98 12/31/18 07:00 Cardiovascular: Yes: S1, S2 Respiratory: Yes: Regular, CTA Bilaterally Gastrointestinal: Yes: Normal Bowel Sounds, Soft Neurological: Yes: Alert, Oriented, Unsteady Gait Labs: CBC, BMP 12/31/18 06:30 12/31/18 06:30 Problem List - Problems (1) Dizziness Assessment/Plan: possible BPPV r/o vertebral CVA meclizine MRA to neuro consult noted Code(s): R42 - DIZZINESS AND GIDDINESS (2) Migraine Code(s): G43.909 - MIGRAINE, UNSP, NOT INTRACTABLE, WITHOUT STATUS MIGRAINOSUS (3) Diabetes Assessment/Plan: check BGM Q6H, iss. Code(s): E11.9 - TYPE 2 DIABETES MELLITUS WITHOUT COMPLICATIONS (4) Leukocytosis Assessment/Plan: likely reactive. no symptoms suggestive of infection. would hold abx at this time Code(s): D72.829 - ELEVATED WHITE BLOOD CELL COUNT, UNSPECIFIED (5) Abnormal QT interval present on electrocardiogram Assessment/Plan: prolonged Qtc- 503. avoid QT prolonging medications ekg Code(s): R94.31 - ABNORMAL ELECTROCARDIOGRAM [ECG] [EKG]
[2018-12-31] MEDS ORDERED: PT OWN MED DRAWER 7, Y5N ONE (09:39)
--- NOTE | 2018-12-31 09:49 | EKG ---
Test Reason : Blood Pressure : / mmHG Vent. Rate : 088 BPM Atrial Rate : 088 BPM P-R Int : 194 ms QRS Dur : 086 ms QT Int : 416 ms P-R-T Axes : 032 018 039 degrees QTc Int : 503 ms NORMAL SINUS RHYTHM NONSPECIFIC T WAVE ABNORMALITY PROLONGED QT ABNORMAL ECG NO PREVIOUS ECGS AVAILABLE Confirmed by ANCELMO SINGER, CONCHA ([id number]) on 12/31/2018 9:49:35 AM Referred By: Confirmed By:CONCHA AG MD
[2018-12-31] MEDS: ASPIRIN 81 MG CHEWABLE TABLETS PO SCH (09:56)
[2018-12-31] MEDS ORDERED: FAMOTIDINE 20 MG/50 ML IVPB 20 MG/50 ML MG IVPB SCH (10:00)
[2018-12-31] MEDS ORDERED: FENOFIBRIC ACID 135 MG CAP PO SCH (10:00)
[2018-12-31] MEDS ORDERED: PATIENT'S OWN MEDICATION (NON-FORMULARY) (Linagliptin [Tradjenta] 5 MG) PO SCH (10:00)
[2018-12-31 10:25] VITALS: BP 119/79; PULSE 92; TEMP 98.3
[2018-12-31] MEDS ORDERED: MECLIZINE HCL 12.5 MG TABLET PO SCH (11:30)
[2018-12-31] MEDS ORDERED: POTASSIUM CHLORIDE TABS 20 MEQ TABLET.ER (FP) PO ONE (11:30)
--- NOTE | 2018-12-31 12:03 | PN ---
Progress Note (short form) - Note Progress Note: NEUROLOGY PROGRESS: Events reviewed and discussed with staff. MRA of brain (reviewed): essentially normal study Pt without complaints of headache or dizziness today. No further reports of nausea. Head CT (reviewed): chronic periventricular and subcortical microvascular changes c/w migraine WBC 11.0 -> 7.9 KATELYNN: 120/80 without orthostatic changes. NEURO: Awake, alert, cooperative. CN: nl. Motor: No drift. Strength nl. Coordination: No FTN dystaxia Sensation: Reduced sharp to toes Gait: Nl. Impression: 1. Exacerbation of Migraine Headaches (likely vertebrobasilar distribution with vertigo) 2. Peripheral Neuropathy (c/w diabetes) Suggest: Continue Propanolol ER 60 mg po daily for migraine prophylaxis Add rizatriptan 10 mg ODT prn for acute migraine Neuro f/u as out-patient Thank you very much, Dimitri Viveros MD
--- NOTE | 2018-12-31 12:27 | PN ---
Teaching Attending Note Name of Resident: Morgan Mcleod ATTENDING PHYSICIAN STATEMENT I saw and evaluated the patient. I reviewed the resident's note and discussed the case with the resident. I agree with the resident's findings and plan as documented. SUBJECTIVE:continues to feel dizzy but overall improved since arrival. able to ambulate to bathroom with no difficulty. denies CP, SOB, fever, chills, N/V/C/ D. tolerated breakfast OBJECTIVE: Last Vital Signs Temp Pulse Resp BP Pulse Ox 98.3 F 92 H 18 119/79 98 12/31/18 10:00 12/31/18 10:00 12/31/18 10:00 12/31/18 10:00 12/31/18 07:00 General NAD CV S1 S2 tachy Lungs CTA B/L no wheezing/rales/rhonchi ASSESSMENT AND PLAN: 63yo M wtih PMH DM, hypertriglyceridemia, HTN presented to the ER due to dizzyness that started suddenly this AM 1. Dizzyness-as per neuro likely vestibular migraine with dizzyness. all imaging studies negative. orthostatics negative. improves iwth meclizine. metoprolol switched to propanolol for prophylaxis. neuro outpatient follow up 2. Leukocytosis- liekly reactive. now resolved. no symptoms suggestive of infection. would hold abx at this time 3. prolonged Qtc- 503. avoid QT prolonging medications 4. DM- resume home medications 5. HTN- controlled. cont metoprolol 6. hypertriglyceridemia- tricor 7. DVT ppx- EAM 8. d/c home.
--- NOTE | 2018-12-31 12:55 | CONSULT ---
Consult Consult Specialty:: PM&R Dr Palmer for Dr Phillips - History of Present Illness Chief Complaint: dizziness, resolved History of Present Illness: This is a 63 year old man with a medical history of HTN, dyslipidemia, DM, who presented to the ED 12/30/18 with sudden- onset dizziness. CT head was negative for acute pathology. Neurology was consulted, who recommended MRI/ MRA brain which was unremarkable; Neuro attributed dizziness possibly due to vestibular migraine. GI was consulted for vomiting, who recommended Famotidine. Physiatry is being consulted for further recommendations. - Past Medical History Cardio/Vascular: Yes: HTN, Hyperlipdemia Endocrine: Yes: Diabetes Mellitus - Past Surgical History Past Surgical History: Yes: Colonoscopy (2 years ago with polyp removal), Joint Replacement (knee) - Alcohol/Substance Use Hx Alcohol Use: No History of Substance Use: reports: None - Smoking History Smoking history: Former smoker Have you smoked in the past 12 months: No Aproximately how many cigarettes per day: 20 If you are a former smoker, when did you quit?: 2 YRS - Social History Usual Living Arrangement: With Spouse (home as 4-5 steps to enter) ADL: Independent (without AD) Home Medications - Allergies Allergies/Adverse Reactions: Allergies Allergy/AdvReac Type Severity Reaction Status Date / Time No Known Allergies Allergy Verified 01/01/18 07:05 - Home Medications Home Medications: Ambulatory Orders Aspirin 81 mg PO DAILY 10/13/17 Atorvastatin Ca [Lipitor] 40 mg PO HS 10/13/17 Cholecalciferol (Vitamin D3) [Vitamin D3] 1,000 unit PO DAILY 10/13/17 Linagliptin [Tradjenta] 5 mg PO DAILY 10/13/17 Fenofibric Acid 105 mg PO DAILY 12/30/18 Meclizine HCl [Antivert -] 12.5 mg PO Q6H PRN #28 tablet 12/31/18 propRANOLol HCL [Inderal LA -] 60 mg PO DAILY #30 capsule.er 12/31/18 Review of Systems Findings/Remarks: Denies fevers, changes in vision/ hearing/ mood, CP, SOB, abdominal pain, dysuria, muscle/ joint pain, paresthesias. Dizziness resolved. Physical Exam Vital Signs: Vital Signs Temperature 98.3 F 12/31/18 10:00 Pulse Rate 92 H 12/31/18 10:00 Respiratory Rate 18 12/31/18 10:00 Blood Pressure 119/79 12/31/18 10:00 O2 Sat by Pulse Oximetry (%) 98 12/31/18 07:00 Musculoskeletal: Yes: Other (General: calm M sitting in chair NAD, able to sit- stand Independent without AD, steady without dizziness N/M: B shoulder flexion to 160 degrees, 5/5 BUE/ BLE Extremities: no BLE pitting edema , no B calf tenderness) Labs: CBC, BMP 12/31/18 06:30 12/31/18 06:30 Imaging - Results Cat Scan: Report Reviewed (ct head) MRI: Report Reviewed (MRI/ MRA brain) Assessment/Plan Impression: 1) Deficits mobility/ ADLs 2) Dizziness attributed to vestibular migraine, improved 3) Vomiting, improved 4) hx HTN, dyslipidemia 5) hx DM with possible neuropathy 6) Up to date flu shot, no documented pneumovax 7) Overweight 8) Leukocytosis, improved Recommendations: 1) PT for balance, functional mobility and endurance 2) Falls, safety precautions 3) Cardiac, diabetic precautions 4) DVT ppx: encourage ambulation 5) Nutrition consult for overweight 6) Discharge planning: he will likely be able to return home with home services once medically stable. If dizziness resumes, he may benefit from short- course inpatient rehabilitation Thank you for this referral.
--- NOTE | 2018-12-31 13:34 | DS ---
Physical Exam: SUBJECTIVE: Patient seen and examined at bedside. C/o dizziness improved since admission, headache had resolved, no other complaints. OBJECTIVE: Vital Signs Period Temp Pulse Resp BP Sys/Escobar Pulse Ox Last 24 Hr 98.0 F-98.3 F 84-125 16-20 106-143/60-89 98-98 PHYSICAL EXAM GENERAL: A&Ox3, NAD HEENT: NC/AT, PERRLA, EOMI, MMM NECK: Trachea midline, full range of motion, supple. LUNGS: CTA b/l HEART: RRR no m/r/g ABDOMEN: +bs, soft, NT, ND EXTREMITIES: 2+ pulses, warm, well-perfused, no edema. NEUROLOGICAL: fisher, motor, sensory, cerebellar systems w/o focal deficit PSYCH: Normal mood, normal affect. SKIN: Warm, dry, normal turgor, no rashes or lesions noted LABS Laboratory Results - last 24 hr 12/30/18 12/30/18 12/31/18 16:35 20:54 05:46 WBC RBC Hgb Hct MCV MCH MCHC RDW Plt Count MPV Absolute Neuts (auto) Neutrophils % Lymphocytes % Monocytes % Eosinophils % Basophils % Nucleated RBC % Sodium Potassium Chloride Carbon Dioxide Anion Gap BUN Creatinine Creat Clearance w eGFR POC Glucometer 155 115 134 Random Glucose Calcium Magnesium Total Bilirubin AST ALT Alkaline Phosphatase Total Protein Albumin Vitamin B12 TSH 12/31/18 12/31/18 12/31/18 06:30 06:30 11:36 WBC 7.9 RBC 4.39 Hgb 13.2 Hct 39.5 MCV 89.9 MCH 30.0 MCHC 33.3 RDW 13.7 Plt Count 155 MPV 10.1 Absolute Neuts (auto) 5.3 Neutrophils % 66.8 Lymphocytes % 26.1 D Monocytes % 5.5 Eosinophils % 1.0 Basophils % 0.6 Nucleated RBC % 0 Sodium 140 Potassium 3.6 Chloride 106 Carbon Dioxide 27 Anion Gap 6 L BUN 14 Creatinine 0.7 Creat Clearance w eGFR 113.54 POC Glucometer 125 Random Glucose 129 H Calcium 8.0 L Magnesium 2.2 Total Bilirubin 0.6 AST 21 ALT 29 Alkaline Phosphatase 65 Total Protein 7.0 Albumin 3.8 Vitamin B12 578 TSH 0.97 D HOSPITAL COURSE: Date of Admission:12/30/18 Patient is a 63 y/o M w/ PMHx migraines, DM, HLD, HTN, p/w sudden onset headache , dizziness, NBNB emesis x 4 episodes. NCHCT and brain MRI/MRA were negative. Neurology was consulted and deemed the episode likely an exacerbation of migraines in the vertebrobasilar distribution. He was treated with meclizine and propranolol and improved symptomatically. GI was consulted for r/o of GI causes of n/v and had no recommended inpatient interventions. PM&R was consulted and had no recommended inpatient interventions. Patient was discharged with referrals for outpatient primary care and neurology followup, and medication optimization with meclizine, propranolol in place of metoprolol, and rizatriptan. Date of Discharge: 12/31/18 Minutes to complete discharge: 40 Discharge Summary Reason For Visit: DIZZINESS Current Active Problems Abnormal QT interval present on electrocardiogram (Acute) Diabetes (Acute) Dizziness (Acute) Leukocytosis (Acute) Migraine (Acute) Vomiting (Acute) Condition: Stable - Instructions Diet, Activity, Other Instructions: You were hospitalized for dizziness, headache, nausea, and vomiting. You had CT and MRI/MRA scans of your brain which were all negative. Your neurologist, Dr. Viveros, evaluated you. Your symptoms were most likely an exacerbation of your migraines. Your medications have been adjusted: please begin taking Propranolol (Inderal) as prescribed and discontinue using Metroprolol at this time. Additionally, you have been provided with a medication called Meclizine to take as needed for dizziness. Your new prescriptions are available at your pharmacy. Otherwise resume taking your home medications and drink plenty of fluids. Please follow up with your primary care provider and neurologist within 1 week of discharge. If you experience new or worsening dizziness, headache, nausea and vomiting, notice any new weakness or change in sensation, have fever, chills , or any other new or concerning symptom, please return to the Emergency Department. Referrals: Dimitri Viveros MD [Staff Physician] - Wiliam Vivar MD [Primary Care Provider] - Disposition: HOME - Home Medications Comprehensive Discharge Medication List: Ambulatory Orders Aspirin 81 mg PO DAILY 10/13/17 Atorvastatin Ca [Lipitor] 40 mg PO HS 10/13/17 Cholecalciferol (Vitamin D3) [Vitamin D3] 1,000 unit PO DAILY 10/13/17 Linagliptin [Tradjenta] 5 mg PO DAILY 10/13/17 Fenofibric Acid 105 mg PO DAILY 12/30/18 Meclizine HCl [Antivert -] 12.5 mg PO Q6H PRN #28 tablet 12/31/18 Rizatriptan Benzoate [Rizatriptan] 10 mg PO Q2H PRN #90 tab.rapdis MDD 30 propRANOLol HCL [Inderal LA -] 60 mg PO DAILY #30 capsule.er 12/31/18 This patient is new to me today: Yes Date on this admission: 12/31/18 Emergency Visit: Yes ED Registration Date: 12/30/18 Care time: The patient presented to the Emergency Department on the above date and was hospitalized for further evaluation of their emergent condition. Critical Care patient: No - Discharge Referral Referred to [facility] Med P.C.: No
--- NOTE | 2018-12-31 15:04 | EKG ---
Test Reason : Blood Pressure : / mmHG Vent. Rate : 086 BPM Atrial Rate : 086 BPM P-R Int : 192 ms QRS Dur : 082 ms QT Int : 380 ms P-R-T Axes : 021 -05 039 degrees QTc Int : 454 ms NORMAL SINUS RHYTHM CANNOT RULE OUT INFERIOR INFARCT , AGE UNDETERMINED ABNORMAL ECG WHEN COMPARED WITH ECG OF 30-DEC-2018 07:38, NONSPECIFIC T WAVE ABNORMALITY, IMPROVED IN INFERIOR LEADS NONSPECIFIC T WAVE ABNORMALITY, IMPROVED IN ANTEROLATERAL LEADS Confirmed by CONCHA AG MD ([id number]) on 12/31/2018 3:03:39 PM Referred By: Brodie OCHOA Confirmed By:CONCHA AG MD
== END 2018-12-31 14:28 | disposition home or self-care (01) ==
LOC: JER 07:33 → JERBED 11:58 → J4S 13:24
PROVIDERS: ADMIT Family Medicine; ATTEND Internal Medicine
PROC: 3E033GC Introduction of Other Therapeutic Substance into Peripheral Vein, Percutaneous Approach (ICD-10-PCS; principal; 2018-12-30)
PROC: 3E0337Z Introduction of Electrolytic and Water Balance Substance into Peripheral Vein, Percutaneous Approach (ICD-10-PCS; 2018-12-30)
DX: R42 Dizziness and giddiness (principal); D72.829 Elevated white blood cell count, unspecified; I45.81 Long QT syndrome; E11.9 Type 2 diabetes mellitus without complications; I10 Essential (primary) hypertension; E78.5 Hyperlipidemia, unspecified; E78.1 Pure hyperglyceridemia; G43.909 Migraine, unspecified, not intractable, without status migrainosus; G62.9 Polyneuropathy, unspecified; E66.3 Overweight; Z68.28 Body mass index [BMI] 28.0-28.9, adult; Z87.891 Personal history of nicotine dependence; Z79.82 Long term (current) use of aspirin
CPT/HCPCS: 36415; 70450-TC; 70545-TC; 71045-TC-FY; 80053; 82550; 82553; 82607; 82962; 83036; 83690; 83735; 84443; 84484; 85025; 86593; 93005; 93010; 97116-GP; 97161-GP; 99283-25; G0378; J7030

== ENCOUNTER 2020-03-24 05:19 | Day surgery (SDC) | payer BC ==
[2020-03-23 13:40] VITALS: BMI 33.3
[2020-03-24] MEDS ORDERED: PROPOFOL 20 ML ONE (07:05)
[2020-03-24] MEDS ORDERED: MIDAZOLAM HCL 2 MG/2 ML SINGLE DOSE VIAL ONE (07:05)
[2020-03-24] MEDS ORDERED: DEXAMETHASONE SOD PHOSPHATE 4 MG/1 ML VIAL ONE (07:11)
[2020-03-24] MEDS ORDERED: LIDOCAINE HCL 1%, 10 MG/ML (20ML VIAL) ONE (07:11)
[2020-03-24] MEDS ORDERED: BENZOIN/ALOE VERA/STORAX/TOLU 58 ML BOTTLE ONE (07:12)
[2020-03-24] MEDS ORDERED: LIDOCAINE HCL 1%, 10 MG/ML (20ML VIAL) PNB ONE (07:49)
[2020-03-24] MEDS ORDERED: BUPIVACAINE HCL/PF 0.5% (5 MG/ML) 30 ML VIAL IJ ONE (07:49)
[2020-03-24] MEDS ORDERED: ceFAZolin SODIUM 1 GM VIAL ONE (07:49)
[2020-03-24] MEDS ORDERED: ceFAZolin SODIUM 1 GM VIAL IVPB ONE (07:50)
[2020-03-24] MEDS ORDERED: METOPROLOL TARTRATE 5 MG/5 ML VIAL ONE (07:53)
[2020-03-24] MEDS ORDERED: BACITRACIN 50,000 UNITS VIAL TP ONE (08:13)
[2020-03-24] MEDS ORDERED: KETOROLAC TROMETHAMINE 30 MG/1 ML VIAL ONE (08:27)
--- NOTE | 2020-03-24 09:58 | OP ---
Operative Note - Note: Operative Date: 03/24/20 Pre-Operative Diagnosis: Hallux Valgus/Limitus right foot Operation: Modified zavala bunionectomy right foot Findings: hypertrophic bone and soft tisuue Post-Operative Diagnosis: Same as Pre-op Surgeon: Too Sutherland Tar Distillation Supervisor: Archie Parker Anesthesiologist/PROGRAM MANUFACTURING LEADER: Irma Dowling Anesthesia: Local, MAC Specimens Removed: bone and soft tissue Estimated Blood Loss (mls): 5
[2020-03-24] MEDS ORDERED: LACTATED RINGERS SOLUTION 1,000 ML IV SCH (10:00)
[2020-03-24] MEDS ORDERED: ONDANSETRON 4 MG/2 ML VIAL IVPUSH PRN (10:04)
[2020-03-24] MEDS ORDERED: oxyCODONE HCL 5 MG TABLET PO PRN ×2 (10:04)
[2020-03-24 10:24] VITALS: BP 119/69; PULSE 72; TEMP 98.1
--- NOTE | 2020-03-25 14:36 | PATH ---
Surgical Pathology Report Patient Name: HÉCTOR PADGETT [facility]. Rec. #: [id number] /Age/Gender: 1955 (Age: 64) / M Account: [id number] Location: [facility] SURGICAL Taken: 03/24/2020 Received: 03/24/2020 Reported: 03/25/2020 Physicians: Too Sutherland DPM Specimen(s) Received METATARSAL RIGHT Clinical History Right foot bunionectomy Final Diagnosis FIRST METATARSAL RIGHT, EXCISION: PORTIONS OF BONE WITH DEGENERATIVE AND REACTIVE CHANGE. Electronically Signed [place] M.D. Gross Description Received in formalin labeled "first metatarsal right," are 3 molina-yellow portions of bone ranging from 1.3 x 0.7 x 0.1 cm to 2.0 x 1.6 x 0.2 cm. Nurse Transitional sections are submitted in one cassette, following decalcification. /03/24/2020 saudi/03/24/2020
--- NOTE | 2020-04-11 13:48 | OP ---
DATE OF OPERATION: 03/24/2020 SURGEON: Too Sutherland DPM SIXTH GRADE TEACHER: Archie Parker DPM PREOPERATIVE DIAGNOSIS: Bunion, right foot. POSTOPERATIVE DIAGNOSIS: Bunion, right foot. PROCEDURE: Modified Helton bunionectomy, right foot. FINDINGS: Hypertrophic bone and soft tissue. PROCEDURE IN DETAIL: After noting all preoperative vital signs were within normal limits and after the surgical consent was signed and witnessed, the patient was brought to the OR, placed on the table in supine position. An IV line had been started prior to the patient coming to the OR. Once the patient was in the OR, a well-padded ankle tourniquet was applied to the right ankle. At this time the patient was sedated and local infiltrate was given in a Whalen block fashion around the 1st metatarsophalangeal joint. Once this was done, the foot was then prepped and draped in the usual sterile fashion. Attention was then directed to the 1st metatarsophalangeal joint where a 6 cm long curvilinear incision was created. This incision was deepened using sharp and blunt dissection to the level of the joint capsule. All unavoidable vessels were ligated in the usual fashion. All of the neurovascular structures were retracted out of the surgical site. At this time the incision was deepened and an inverted L capsular incision was created over the 1st metatarsophalangeal joint. Utilizing sharp and blunt dissection, the capsule was reflected proximally from the medial dorsal aspects of the 1st metatarsophalangeal joint. Once this was done, utilizing a sagittal saw the dorsal and medial eminence was resected and sent down to Pathology. The area was then remodeled using a rotary osteotome bur. The area was then flushed with copious amounts of sterile saline that had antibiotic added to it. A McGlamry elevator was then passed through the joint liberating the sesamoid bones from the plantar aspect of the 1st metatarsal head. Once this was done, the toe was put through a range of motion and noted to have excellent range of motion and there were no remaining spicules or dorsal medial eminence remaining. The wound was irrigated once more with antibiotic saline irrigation. The incision was then closed utilizing 2-0 Vicryl, 3-0 Vicryl for capsular closure. Vicryl 4-0 was also utilized for subcutaneous closure. Vicryl 5-0 was utilized to close skin in a subcuticular fashion on the 1st metatarsophalangeal joint. Tincture of benzoin, Steri-Strips were then applied. Patient was given a postoperative injection. Betadine-soaked Adaptic, dry sterile gauze and a Alayna dressing were then applied. The tourniquet was deflated and capillary filling time was instantaneous to all 5 toes of the right foot. Patient tolerated the anesthesia and the procedure well. Patient was returned to recovery room, vital signs stable and vascular status intact. BURAK Oquendo/[id number] WENDY
== END 2020-03-24 09:45 | disposition home or self-care (01) ==
LOC: JASU-SURG 05:19
PROVIDERS: ATTEND Podiatrist Foot Surgery
PROC: 0QSN04Z Reposition Right Metatarsal with Internal Fixation Device, Open Approach (ICD-10-PCS; principal; 2020-03-24 07:30)
DX: M21.611 Bunion of right foot (principal); I10 Essential (primary) hypertension; E11.9 Type 2 diabetes mellitus without complications; Z79.84 Long term (current) use of oral hypoglycemic drugs
CPT/HCPCS: 73630-TC-RT-FY; 88304-TC; 88311-TC